=== PATIENT | female | born 1995 | race Caucasian/White ===

== ENCOUNTER 2018-03-15 20:39 | Emergency (ER) | payer SELFPAY, OTHER | END 2018-03-16 00:08 | disposition left against medical advice (07) | LOC: FTE 20:39 | DX: Z53.21 Procedure and treatment not carried out due to patient leaving prior to being seen by health care provider (principal) ==

== ENCOUNTER 2019-03-16 18:27 | Emergency (ER) | payer MEDICAID | END 2019-03-16 19:37 | disposition home or self-care (01) | LOC: FTE 18:27 | DX: H10.33 Unspecified acute conjunctivitis, bilateral (principal) | CPT/HCPCS: 99283; Z7502 ==

== ENCOUNTER 2019-03-31 10:18 | Emergency (ER) | payer MEDICAID | END 2019-03-31 11:05 | disposition home or self-care (01) | LOC: FTE 10:18 | DX: J02.9 Acute pharyngitis, unspecified (principal) | CPT/HCPCS: 99283 ==

== ENCOUNTER 2019-07-23 08:25 | Emergency (ER) | payer OTHER, MEDICAID | END 2019-07-23 12:41 | disposition home or self-care (01) | LOC: FTE 08:25 | DX: J00 Acute nasopharyngitis [common cold] (principal) | CPT/HCPCS: 99283; Z7502 ==

== ENCOUNTER 2019-08-04 05:01 | Emergency (ER) | payer OTHER ==
[2019-08-04] MEDS: LORAZEPAM 0.5 MG TAB PO (06:46)
[2019-08-04] MEDS: KETOROLAC 30 MG INJ IM (06:47)
[2019-08-04] MEDS: DIPHTH/TET/ACEL PERTUSS (ADULT) 0.5 ML VIAL IM* (06:59)
[2019-08-04] MEDS: LIDOCAINE 2% (MDV) 20 ML INJ INJ (07:00)
== END 2019-08-04 08:04 | disposition home or self-care (01) ==
LOC: FTE 05:01
DX: F41.9 Anxiety disorder, unspecified (principal); Z23 Encounter for immunization
CPT/HCPCS: 81025; 90471; 90715; 96372; 99284-25